=== PATIENT | female | born 1965 | race Caucasian/White ===

== ENCOUNTER → 2016-10-30 | Outpatient (CLI) | payer OTHER ==
[2016-10-30 16:52] LABS: Follicle Stimulating Hormone 60.9 mIU/mL
== END | disposition home or self-care (01) ==
LOC: LABWHC1 16:12
PROVIDERS: ATTEND Obstetrics & Gynecology
DX: N95.1 Menopausal and female climacteric states (principal)
CPT/HCPCS: 36415; 82670; 83001; 84403

== ENCOUNTER → 2018-08-30 | Outpatient (CLI) | payer OTHER ==
--- NOTE | 2018-08-30 10:32 | US ---
EXAMINATION TYPE: US abdomen complete DATE OF EXAM: 08/30/2018 COMPARISON: NONE CLINICAL HISTORY: 53-year-old female R60.9 Edema, unspecified. NPO, no surgeries, Bloating TECHNIQUE: Multiple sonographic images of the abdomen are obtained. FINDINGS: EXAM MEASUREMENTS: Liver Length: 12.5 cm Gallbladder Wall: 0.1 cm CBD: 0.6 cm CHD: 0.8 cm Spleen: 8.8 cm Right Kidney: 9.1 x 4.3 x 4.4 cm Left Kidney: 9.1 x 4.9 x 6.1 cm Pancreas: Limited visualization of portions of the pancreatic head and tail due to shadowing from bow el gas. The main pancreatic duct is mildly prominent at 1.6 mm. Liver: wnl Gallbladder: wnl Evidence for sonographic Cee's sign: neg CBD: Borderline to mildly dilated CHD: slightly dilated for patient age Spleen: wnl Right Kidney: wnl Left Kidney: wnl Upper IVC: wnl Abd Aorta: no AAA visualized IMPRESSION: 1. Biliary ductal dilatation measuring up to 8 mm. Correlate with alkaline phosphatase and bilirubin levels to exclude the possibility of biliary obstruction. Contrast enhanced CT or ERCP/MRCP as clinic ally indicated. 2. Slight prominence of the main pancreatic duct at 1.6 mm. Consider short interval follow-up to reas sess.
== END | disposition home or self-care (01) ==
LOC: RADUSWWP 07:35
PROVIDERS: ATTEND Family Medicine
DX: K83.8 Other specified diseases of biliary tract (principal); R60.9 Edema, unspecified
CPT/HCPCS: 76700

== ENCOUNTER → 2018-09-21 | Outpatient (CLI) | payer OTHER ==
--- NOTE | 2018-09-21 15:57 | MR ---
EXAMINATION TYPE: MR MRCP DATE OF EXAM: 09/21/2018 COMPARISON: Correlation ultrasound 08/30/2018 HISTORY: 53-year-old female bile duct obstruction Technique: Multiplanar, multisequence images of the abdomen were acquired. Highly T2 weighted images of the pancreatic or biliary system for MRCP. Rotational 3-D reconstructions generated on a dedicated independent workstation. FINDINGS: Heart normal size without pericardial effusion. No pleural effusion. Tiny 8 mm T2 bright lesion anterior segment 4 of the left liver lobe likely a tiny cyst. No signific ant loss of signal within the liver on out of phase T1-weighted sequence to suggest fatty infiltratio n. There is mild intrahepatic biliary ductal dilatation and bile duct measuring 9 mm. No intraluminal fi lling defect is identified. Incidental low cystic duct insertion at the level of the upper pancreatic head, refer to coronal T2 i mage 17 and axial T2 FS image 18. No main pancreatic duct is minimally prominent but still within acceptable limits. MRCP images show pancreatic divisum, refer to series 701 images 32 through 36. Also, refer to axial T2 image 16. Layering sludge within the gallbladder. No abnormal gallbladder distention or wall thickening. No gal lstones are identified. Adrenal glands and kidneys appear within normal limits as does the spleen and pancreas. No upper abdominal lymphadenopathy, ascites fluid, or gross bowel abnormality seen. IMPRESSION: 1. Mild intrahepatic and extrahepatic biliary ductal dilatation. The bile duct measures 9 mm. No dist al obstructing lesion or choledocholithiasis seen. This may be chronic in this patient. Correlate wit h alkaline phosphatase and bilirubin levels. If elevated, ampullary stenosis is a possibility. 2. Incidental low cystic duct insertion at the level of the upper pancreatic head. 3. Also, incidental pancreatic divisum. This variant anatomy likely accounts for the mild prominence to the main pancreatic duct.
== END ==
LOC: RADMRIMAIN 07:04
PROVIDERS: ATTEND Family Medicine
DX: K83.8 Other specified diseases of biliary tract (principal)
CPT/HCPCS: 74181

== ENCOUNTER → 2022-03-16 | Outpatient (CLI) | payer BC, MEDICARE ==
--- NOTE | 2022-03-16 13:11 | CT ---
EXAMINATION TYPE: CT chest w con DATE OF EXAM: 03/16/2022 COMPARISON: None HISTORY: Coughing up blood CT DLP: 136.60 mGycm Automated exposure control for dose reduction was used. CONTRAST: CT scan of the chest is performed with IV Contrast, patient injected with 70 mL of Isovue 300. FINDINGS: LUNGS: Small area of focal infiltrate left upper lobe. The lungs are otherwise clear. Mild basilar de pendent atelectasis seen. No nodule or mass appreciated at this time. MEDIASTINUM: There are no greater than 1 cm hilar or mediastinal lymph nodes. No pericardial effusi on is seen. Thoracic aorta is of normal caliber. The heart is not enlarged. UPPER ABDOMEN: No significant abnormality appreciated. OTHER: No additional significant abnormality is seen. IMPRESSION: Small area of focal infiltrate left upper lobe. The lungs are otherwise clear. Correlate for active inflammatory or infectious process.
== END | disposition home or self-care (01) ==
LOC: RADCTMAIN 11:25
PROVIDERS: ATTEND Family Medicine
DX: R04.9 Hemorrhage from respiratory passages, unspecified (principal)
CPT/HCPCS: 82565; 84520; 71260; 36415; Q9967

== ENCOUNTER → 2022-05-08 | Outpatient (CLI) | payer MEDICARE ==
[2022-05-08 16:52] LABS: ALT 12 U/L (8-44); AST 20 U/L (13-35); Albumin 4.1 g/dL (3.8-4.9); Albumin/Globulin Ratio 1.75 (1.60-3.17); Alkaline Phosphatase 95 U/L (41-126); Bilirubin, Conjugated <0.20 mg/dL (0.20-0.40); Globulin 2.3 g/dL (1.6-3.3); Lipase 230 U/L (14-63); Total Bilirubin <0.15 mg/dL (0.30-1.20); Total Protein 6.4 g/dL (6.2-8.2)
[2022-05-08 21:54] LABS: Cancer Antigen 153 8.4 U/mL (0.0-32.3)
== END | disposition home or self-care (01) ==
LOC: LABWHC1 09:57
PROVIDERS: ATTEND Family Medicine
DX: I10 Essential (primary) hypertension (principal); Z79.899 Other long term (current) drug therapy
CPT/HCPCS: 36415; 80076; 83690; 86300